=== PATIENT | male | born 1980 | race Caucasian/White ===

== ENCOUNTER → 2016-12-11 | Outpatient (CLI) | payer OTHER | END | disposition home or self-care (01) | LOC: RAD.S 11-06 10:16 | DX: S12.9XXD Fracture of neck, unspecified, subsequent encounter (principal); M79.603 Pain in arm, unspecified; M50.20 Other cervical disc displacement, unspecified cervical region; V89.2XXD Person injured in unspecified motor-vehicle accident, traffic, subsequent encounter ==

== ENCOUNTER → 2016-12-14 | Outpatient (CLI) | payer OTHER | END | disposition home or self-care (01) | LOC: RAD.S 12-13 16:00 | DX: S12.9XXD Fracture of neck, unspecified, subsequent encounter (principal); M50.20 Other cervical disc displacement, unspecified cervical region; M79.603 Pain in arm, unspecified; V89.2XXD Person injured in unspecified motor-vehicle accident, traffic, subsequent encounter ==

== ENCOUNTER → 2016-12-27 | Outpatient (CLI) | payer OTHER | END | disposition home or self-care (01) | LOC: RAD.S 09:44 | DX: S12.9XXA Fracture of neck, unspecified, initial encounter (principal); M43.12 Spondylolisthesis, cervical region; M54.12 Radiculopathy, cervical region; V89.2XXA Person injured in unspecified motor-vehicle accident, traffic, initial encounter ==